=== PATIENT | female | born 1975 | race African-American/Black ===

== ENCOUNTER → 2018-08-09 | Emergency (ER) | payer OTHER ==
[~2018-08-09] MED LIST: Enoxaparin Sodium 100 MG/ML SYRINGE ONE; Fentanyl 100 MCG/2 ML VIAL ONE; Ondansetron PF 4 MG/2 ML Vial ONE; Pantoprazole 40 MG VIAL ONE; Prochlorperazine 10 MG/2 ML VIAL ONE
[2018-08-09 07:05] LABS: #Basophils 0.1 thou/uL (0.0-0.2); #Eosinphils 0.2 thou/uL (0.0-0.7); #Lymphocytes 2.5 thou/uL (1.20-3.40); #Monocytes 0.7 thou/uL (0.11-0.59); #Neutrophils 7.5 thou/uL (1.40-6.50); %Basophils 0.9 % (0.0-1.0); %Eosinophils 2.2 % (0.0-10.0); %Lymphocytes 22.8 % (21.0-51.0); %Monocytes 5.9 % (0.0-10.0); %Neutrophils 68.3 % (42.0-75.0); Mean Corpuscular Hemoglobin 25.3 pg (27.0-31.0); Mean Platelet Volume 11.3 fL (7.4-10.4); Platelet Count 331 thou/uL (130-400); RBC Distribution Width 14.4 % (11.5-14.5); Red Blood Cell (RBC) Count 5.14 mill/uL (4.20-5.40)
[2018-08-09 07:15] LABS: ALT (SGPT) 25 U/L (8-55); AST (SGOT) 23 U/L (5-34); Albumin 3.9 g/dL (3.5-5.0); Alkaline Phosphatase 73 U/L (40-150); Anion Gap 16 mmol/L (10-20); BUN (Urea Nitrogen) 7 mg/dL (7.0-18.7); Bilirubin, Total 0.5 mg/dL (0.2-1.2); Calc. Creatinine Clearance 0 mL/min (70-130); Calcium 10.1 mg/dL (7.8-10.44); Carbon Dioxide 24 mmol/L (22-29); Chloride 104 mmol/L (98-107); Estimated GFR-MDRD Greater than 90; Globulin 4.6 g/dL (2.4-3.5); Glucose 88 mg/dL (70-105); Lipase 159 U/L (8-78); Potassium 3.5 mmol/L (3.5-5.1); Protein, Total 8.5 g/dL (6.0-8.3); Sodium 140 mmol/L (136-145)
--- NOTE | 2018-08-09 09:11 | CT ---
ABDOMEN CT WITHOUT CONTRAST PELVIC CT WITHOUT CONTRAST: HISTORY: Nausea. Vomiting. Status post gastric sleeve. COMPARISON: None. FINDINGS: ABDOMEN CT: Minimal atelectatic changes in the lung bases. Heart size is normal. No pericardial effusion. The descending thoracic aorta and abdominal aorta have a normal caliber. No periaortic fat stranding. Gallbladder is surgically absent. Limited evaluation of the solid organs due to lack of IV contrast. Grossly, the liver, spleen, and a drenal glands have a normal attenuation. Pancreas is also grossly unremarkable. Bilaterally, no evidence of obstructive uropathy. Punctate 1 mm nonobstructing calcification in the left renal pelvis. No gastrohepatic, retrocrural, or periportal lymphadenopathy. There is stranding in the central abdominal mesentery. Stranding is adjacent to the proximal superio r mesenteric vein. There is a punctate filling defect noted in a branch of the superior mesenteric v ein. Correlate for possible thrombophlebitis. No mesenteric mass, free air, or free fluid. Limited evaluation of the alimentary canal by the lack of oral contrast. No evidence of bowel obstru ction. Bariatric surgical changes are noted. Normal caliber appendix. Unremarkable colon. Occasio nal diverticulum. CT PELVIS: No mass, lymphadenopathy, free air, or free fluid. No lytic or blastic lesions n the osseous structures. IMPRESSION: Inflammatory changes centered about the central mesenteric, involving the superior mesenteric vein. Thrombophlebitis of the vein cannot be excluded. Postcontrast abdomen and pelvis CT are recommended. Results of the study were discussed with Dr. De La Torre 08/09/2018 at 8:27 a.m. CODE CR POS: VERITO
== END ==
LOC: BURERS 06:18
DX: R10.13 Epigastric pain (principal); E66.9 Obesity, unspecified
CPT/HCPCS: 36415; 74176; 80053; 83690; 85025; 96361; 96365; 96372; 96375; 96376; C9113; J0780; J1650; J2405; J3010